=== PATIENT | male | born 1975 | race Hispanic/Latino ===

== ENCOUNTER 2022-07-19 07:07 | Emergency (ER) | payer OTHER ==
[~2022-07-19] VITALS: Ht 170.2 cm; Wt 100.0 kg
[2022-07-19 07:07] VITALS: BP 132/84
[2022-07-19] MEDS ORDERED: NAPROXEN500 MG PO ×2 (08:03→08:05)
== END 2022-07-19 08:20 | disposition home or self-care (01) | DRG 605 ==
LOC: ED 07:07
PROC: 0HQ1XZZ Repair Face Skin, External Approach (ICD-10-PCS; principal; 2022-07-19)
DX: S01.81XA Laceration without foreign body of other part of head, initial encounter (principal); V49.40XA Driver injured in collision with unspecified motor vehicles in traffic accident, initial encounter

== ENCOUNTER 2022-07-29 08:40 | Emergency (ER) | payer OTHER ==
[~2022-07-29] VITALS: Ht 170.2 cm; Wt 47.3 kg
[~2022-07-29 08:40] MED LIST: NAPROXEN500 MG PO
[2022-07-29 09:02] VITALS: BP 140/92
[2022-07-29 09:06] VITALS: BP 140/92
== END 2022-07-29 09:11 | disposition home or self-care (01) | DRG 950 ==
LOC: ED 08:40
DX: S01.01XD Laceration without foreign body of scalp, subsequent encounter (principal); V89.2XXD Person injured in unspecified motor-vehicle accident, traffic, subsequent encounter